=== PATIENT | female | born 1995 | race Caucasian/White ===

== ENCOUNTER 2016-08-23 12:59 | Observation (INO) ==
--- NOTE | 2016-08-23 14:58 | Discharge Summary ---
Date of Encounter: 08/23/16 Time of Encounter: 15:01 - Discharge Diagnosis (1) 36 weeks gestation of Priority: Primary Status: Acute Comments: Pt not feeling contractions, no cervical change, stable to discharge to home. Keep scheduled appointment with care provider. (2) Polyhydramnios affecting in third trimester Priority: Secondary Status: Acute (3) and not yet delivered in third trimester Priority: Primary Status: Acute - Discharge Medications Home Medications: Dha 1 tab PO DAILY 05/05/15 [History] Allergies/Adverse Reactions: Allergies No Known Allergies Allergy (Verified 05/05/15 23:41) Date of admission: 08/23/16 12:59 Primary care physician: PCP NO Discharging clinician: Naya Sloan Anticipated date of discharge: 08/23/16 - Patient Status Disposition: Home, Self-Care Condition: Good Functional capacity at discharge: independent ambulation - Discharge Instructions Follow Up With: NO,PCP [Primary Care Provider] - Neyda Kent DO [Partnered Physician] - - Diet and Activity Activity: resume usual activities as tolerated Diet: regular diet 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 Reason for admission: other Time Attestation: Total time spent providing and/or coordinating discharge services: Time Spent: Less than 30 minutes Exam - Constitutional General appearance IM: A&O X 3 - Respiratory Respiratory exam: Present: CTAB - Cardiovascular Cardiovascular exam IM: Present: RRR - GI/Abdominal GI/Abdominal exam IM: soft - Extremities Exam Extremities exam IM: Present: normal inspection - Neurological Exam Neurological exam: normal gait, oriented X3 - Other Additional findings: VE 3/50/-3 EFM tracing shows Cat 1 tracing, 120/+accels/decels reactive NST - VTE Reasons for not Prescribing Prophylaxis: Medical contraindication
== END 2016-08-23 15:20 | disposition home or self-care (01) ==
LOC: 1NENULAB
PROVIDERS: ADMIT Obstetrics & Gynecology; ATTEND Obstetrics & Gynecology

== ENCOUNTER 2016-09-08 10:00 | Inpatient (IN) ==
[2016-09-08] MEDS ORDERED: Ringers Solution, Lactated 1,000 ML ONE (11:12)
[2016-09-08] MEDS ORDERED: Famotidine 20 MG/2 ML VIAL IVP PRN (11:17)
[2016-09-08] MEDS ORDERED: Naloxone 0.4 MG/ML INJ IVP PRN (11:17)
[2016-09-08] MEDS ORDERED: Metoclopramide 10 MG/2 ML VIAL IVP PRN (11:17)
--- NOTE | 2016-09-08 11:26 | OB/GYN History & Physical ---
Date of Encounter: 09/08/16 Time of Encounter: 11:20 Assessment and Plan (1) 39 weeks gestation of Current visit: Yes Status: Chronic . 39w 0d. Face anterior lie. Macrosomia and polyhydramnios. - Elective labor induction today. Plan on cytotec induction. Will re-evaluate to assess need for laura induction and/or pitocin. Hx shoulder dystocia on previous delivery. (2) Elective induction of labor planned Current visit: Yes Status: Acute as above. (3) Polyhydramnios affecting in third trimester Current visit: Yes Status: Acute as above. (4) Macrosomia affecting management of mother in third trimester, single gestation Current visit: Yes Status: Acute as above. History of Present Illness Chief complaint: induction HPI: Mrs. Quigley is a 21 year old female presents from home for induction. Indication for induction: macrosomia. (hx vaginal deliveries). 39w0d. Patient notes movement. Her contractions are described as mild, lasting appx 1 minute, occurring every 15-20 min. She does not have any discomfort, questions, or complaints at this time. complications: polyhydramnios macrosomia Face anterior lie Previous twyla complications: shoulder dystocia OB: Dr. Kent Blood type: A+, ab (-) GBS: (-) HbSAG: (-) Rubella: Immune Varicella: immune T. Pallidum: (-) HIV: (-) N. 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 Escobedo Baby boy anticipated name: Ben. Past Med Surg Social Fam HX - Past Medical History Medical history: no medical history Psychiatric history: no psych history - Past Surgical History Surgical History: no surgical history - Social History Smoking Status: Never smoker Smokeless Tobacco Status: No Alcohol use: none Drug use: none - Family History Mother Adopted: No Family Member Ethnicity: Non- Living Status: Still Living Hx Family Cardiac Disorders: No Hx Family Respiratory Disorders: No Hx Family Cancer: No Hx Family GI Disorders: No Hx Family Endocrine Disorder: Yes (thyroid disease) Hx Family Neuromuscular Disorders: No Hx Family Neurologic Disorders: No Hx Family HEENT Disorders: No Hx Family Autoimmune Disorders: No Obstetrical History - Pregnancies : 3 Para: 2 Term: 2 : 0 Ab's: 0 Livin Medications and Allergies Dha 1 tab PO DAILY 05/05/15 [History] Allergies No Known Allergies Allergy (Verified 09/08/16 11:20) Review of System OB All systems PM: reviewed and no additional remarkable complaints except as stated - Constitutional Constitutional ROS IM: no anorexia, no fatigue, no fever(s) - Cardiovascular Cardiovascular: no chest pain, no chest pain with activity - Respiratory Respiratory: no cough, no dyspnea, no dyspnea on exertion Exam - Constitutional Constitutional: well developed, well nourished, no acute distress, average body habitus - Neck Neck exam: full ROM - Lungs Respiratory exam: CTAB - Cardiovascular Cardiovascular exam: RRR, +S1, +S2 - Abdomen Abdomen: Present: bowel sounds normal, gravid - Extremities Extremities exam: normal capillary refill, normal inspection, pedal edema (1) Results All other labs normal. - VTE Reasons for not Prescribing Prophylaxis: Treatment not Indicated - Low risk for VTE
[2016-09-08 11:57] LABS: Basophils % 0.3 %; Eosinophils % 0.4 %; Hemoglobin 10.1 g/dL (11.5-15.4); Immature Granulocytes % 1.2 % (0-4); Lymphocytes % 20.1 %; Mean Corpuscular HGB Conc 30.6 g/dL (31.6-35.5); Mean Corpuscular Volume 78.6 fL (83.0-100.0); Mean Platelet Volume 10.7 fL (9.4-12.4); Monocytes # 0.8 K/mcL (0.0-1.3); Monocytes % 7.6 %; Platelet Count 239 K/mcL (140-400); Red Cell Distribution Width 14.3 % (11.5-14.5); Segmented Neutrophils % 70.4 %
[2016-09-08] MEDS ORDERED: Oxytocin 20 units/ LR 1000 mL 20 UNIT/1,000 ML BAG IVC SCH (12:06)
[2016-09-08] MEDS ORDERED: *HR* Nalbuphine 20 MG/ML AMPUL IVP PRN (12:08)
[2016-09-08] MEDS: Ringers Solution, Lactated 1,000 ML IVC SCH ×2 (12:46→19:04)
--- NOTE | 2016-09-08 15:05 | Anesthesia Evaluation PreOp ---
Date of Encounter: 09/08/16 Time of Encounter: 15:03 - Past History Planned Operation: justin Cardiac History: Denies any Significant Hx Pulmonary History: Denies Any Significant HX INTERPRETER AND TRANSLATOR History: Denies Any Significant HX Other Medical History: Denies Any Significant HX Anesthesia History: No Prior Anesthetic Complications, Past Anesthesia (2 epidurals) : Yes Test: Positive Alcohol Use: none Drug use: none Medications and Allergies Dha 1 tab PO DAILY 05/05/15 [History] Allergies No Known Allergies Allergy (Verified 09/08/16 11:20) - Meds/Allergy Pre-op Review Medications Reviewed: Yes Allergies Reviewed: Yes Beta Blockers on Current Med List: No Anesthesia Results - Labs 09/08/16 11:45 Anesthesia Exam 111/6690 fht 115 Height: 5'3" Weight: 90.5 kg NPO (# of Hours): 3 Pain Scale: 2 Pain Scale Used: Numeric (1 - 10) - HEENT Pupil (Motor): Pupils equal Mallampati: II Teeth: Normal Oral Opening: Greater than 3 - INTERPRETER AND TRANSLATOR LOC: Oriented INTERPRETER AND TRANSLATOR Motor: Normal RUE, Normal LUE, Normal RLE, Normal LLE, Normal Face INTERPRETER AND TRANSLATOR Sensory: Normal: RUE, LUE, RLE, LLE, Face - Cardiac Rhythm: Regular Murmur: None - Pulmonary Breath Sounds: bilateral Clear Respiratory Effort: Symmetrical Anesthesia Assess/Plan ASA Score: 2 Modified [place] Scale for Level of Consciousness: Cooperative, oriented, and tranquil Anesthetic Plan: Regional Autologous Blood: No Monitoring Plan: Standard Monitors Recovery Plan: Other (risks discussed, questions anwered, consented)
[2016-09-08] MEDS ORDERED: *HR* FentaNYL (PF) 100 MCG/2 ML VIAL EP ONE (15:08)
[2016-09-08] MEDS ORDERED: *HR* Ropivacaine/PF 0.2% 10 ML AMPUL EP ONE (15:08)
[2016-09-08] MEDS ORDERED: Epidural Premix (fent/bupiv) 110 ML EP SCH (15:15)
[2016-09-08] MEDS ORDERED: Acetaminophen 325 MG TABLET PO PRN (15:58)
[2016-09-08] MEDS ORDERED: *HR* FentaNYL (PF) 100 MCG/2 ML VIAL ONE (19:08)
[2016-09-08] MEDS ORDERED: *HR* Morphine Sulfate/PF 5 MG/10 ML AMPUL ONE (19:08)
[2016-09-08] MEDS ORDERED: *HR* Phenylephrine 10 MG/ML VIAL ONE (19:08)
[2016-09-08] MEDS ORDERED: Ondansetron 4 MG/2 ML VIAL ONE (19:08)
[2016-09-08] MEDS ORDERED: *HR* Oxytocin 10 UNIT/ML VIAL IM ONE (19:09)
[2016-09-08] MEDS ORDERED: EPHEDrine 50 MG/ML VIAL ONE (19:57)
[2016-09-08] MEDS ORDERED: *HR* HYDROmorphone (PF) 1 MG/ML SYRINGE IVP PRN ×2 (20:14→21:31)
[2016-09-08] MEDS ORDERED: Ondansetron 4 MG/2 ML VIAL IVP PRN (20:14)
--- NOTE | 2016-09-08 20:14 | Anesthesia Procedures ---
Date of Encounter: 09/08/16 Time of Encounter: 20:12 Procedures: Anesthesia - Epidural/Spinal Patient ID/Chart reviewed: Yes Patient examined: Yes OB Eval: Gestational age: 38 OB Eval: : 3 OB Eval: Hx Para: 2 OB Eval: Dilated at (cm): 3 OB Eval: Contractions: Non-stressed pattern Consent Obtained: Yes Supplemental Oxygen: Nasal Cannula Supplemental Oxygen Rate (L/min): 3 Site Prep: Aseptic Technique, Sterile prep and drape, Povidone-Iodine 1% Patient position: upright Local Anesthetic: Lidocaine 1% Amount of Local Anesthetic used: 3 Interspace Used: L2-L3 Loss of Resistance ([place]): No Blood: No CSF: Yes Paresthesia: No Spinal Needle Gauge: 24 (g) Spinal Dose: marcaine 12 mg, duramorph .25mg fentanyl 7 mc Procedure: aseptiuc, tolerated well, effective
--- NOTE | 2016-09-08 20:46 | OB/GYN Procedure Note ---
Section - Date of procedure: 09/08/16 Preop diagnosis: other ( macrosomia, history of shoulder dystocia) Post-op diagnosis: same Procedure: primary low transverse Surgeon: Tameka Null Estimated blood loss (cc): 700 Anesthesiologist: Stevie Ewing Income Tax Administrator: Levon Mauro Anesthesia Type: Spinal section complications: none Disposition: L&D Recovery Room Specimens: Placenta - Infant (s) A Delivery Date: 09/08/16 Infant Delivery Time: 20:02 Presentation: vertex Position: unknown Route of delivery: other Gender: Male Viability: Viable Pounds: 9 Ounces: 3 Gram Weight: 4165 kg at 1 minute: 8 at 5 minutes: 9 Placenta: complete extraction Cord: nuchal cord, 3 umbilical vessels - Narrative Narrative: Patient was a originally admitted for an elective induction of labor due to macrosomia and history of polyhydramnios. Her history is significant for a shoulder dystocia lasting 90 seconds with her first infant that weighed 9 pounds. Her last ultrasound was approximately 2 weeks ago with an estimated weight of approximately 8 pounds and 4 ounces. The induction was started with Pitocin and she remained dilated 3 cm with a very high station. When I went in to obtain her history, she mentioned the above facts of a shoulder dystocia that was quite scary experience. Both her and her mother stated that if there was ever chance that that would happen again that she would prefer section. Given the fact that her ultrasound was 2 weeks ago, the Pitocin was stopped and we requested a formal ultrasound. The ultrasound gave an estimated weight of 9 lbs. 14 oz.+ or -1 lb. 8 oz. The RIGOBERTO was 16.9 cm of concern was a BPD of at the 87th percentile, head circumference at the 29th percentile, and an abdominal circumference greater than the 98th percentile. Measurements noted the head circumference of 33 cm and an abdominal circumference of 39 cm. Given these findings and her history of shoulder dystocia discuss the options but ultimately decided to proceed with a primary section. Procedure: Patient was taken to the operating room and placed in supine position after administration of spinal anesthetic. Skin was then prepped and draped in usual sterile fashion and timeout procedure was performed. A Pfannenstiel incision was performed and carried down to the fascial layer until the abdominal cavity was entered. A bladder flap was then gently created with sharp dissection. A low transverse uterine incision was then performed and extended bilaterally with bandage scissors. Viable male infant was then delivered from a vertex presentation with scores of 8 and 9 at one and 5 minutes respectively, and the infant weighed 9 lbs. 3 oz. Clamped and cut and the infant was handed to the nursery team. The placenta was then manually removed and the uterine cavity was wiped clean with wet lap sponge. Uterine incision was closed in a layered fashion with 0 Vicryl suture in a running locking fashion. Good hemostasis was achieved. Next the paracolic gutters were then gently wiped with a wet lap sponge. Once again good hemostasis was noted in the pelvis. The fascial layer was then closed with 0 PDS stratafix suture in a running nonlocking fashion. Subcutaneous layer was irrigated with sterile water and good hemostasis was present. The subcutaneous layer was then closed with 4-0 Vicryl suture in a running nonlocking fashion continuing to close the skin edges in a running subcuticular fashion. Patient followed procedure well, all sponge needle and instrument counts reported as correct. Estimated blood loss was 700 mL. The urine in the Garcia catheter was clear and yellow. She was taken the recovery room in stable condition.
--- NOTE | 2016-09-08 22:31 | Anesthesia Evaluation Post Op ---
Date of Encounter: 09/08/16 Time of Encounter: 22:29 - Vital Signs Vital Signs: 100/70 88 16 974 - Lungs Lungs: Clear Ascult./Percussion - Airway Airway: Non-obstructed - Cardiovascular Regular Rate - Mental Status Mental Status: Alert & Oriented, Answers Appropriately - Pain Pain Scale: 3 Pain Scale used: Numeric (1 - 10) (dilaudid 1mg) - Nausea Vomiting Nausea Vomiting: Present (zofran for nausea) - Hydration Hydration: NPO Notes: 09/08/16 22:30 fully awake, some mild nausea, beginning to have incisional pain, dilaudid being given, stable otherwise - Discharge PostOp Status: Transfer Patient to floor
[2016-09-09] MEDS ORDERED: Ketorolac 30 MG/ML VIAL IVP PRN ×2 (00:14→10:37)
[2016-09-09] MEDS ORDERED: Ondansetron 4 MG/2 ML VIAL IVP PRN ×2 (00:34→01:18)
[2016-09-09] MEDS ORDERED: Metoclopramide 10 MG/2 ML VIAL IVP PRN (00:34)
[2016-09-09] MEDS ORDERED: Sennosides 8.6 MG TABLET PO PRN (00:34)
[2016-09-09] MEDS ORDERED: Oxytocin 20 units/ LR 1000 mL 20 UNIT/1,000 ML BAG IV SCH (00:34)
[2016-09-09] MEDS ORDERED: Ketorolac 30 MG/ML VIAL IM PRN (00:35)
[2016-09-09] MEDS ORDERED: *HR* Promethazine 25 MG/ML VIAL IVP PRN (04:12)
[2016-09-09 04:24] LABS: Hematocrit 24.7 % (35.3-44.9); Immature Granulocytes % 0.7 % (0-4); Lymphocytes % 10.2 %; Mean Corpuscular Hemoglobin 25.2 pg (28.0-33.3); Mean Corpuscular Volume 78.9 fL (83.0-100.0); Mean Platelet Volume 10.6 fL (9.4-12.4); Platelet Count 217 K/mcL (140-400); Red Blood Count 3.13 M/mcL (3.82-4.97); Red Cell Distribution Width 14.6 % (11.5-14.5); Segmented Neutrophils % 82.1 %
[2016-09-09 04:25] LABS: Basophils % 0.2 %; Lymphocytes # 1.3 K/mcL (0.6-4.6); Monocytes # 0.9 K/mcL (0.0-1.3); Monocytes % 6.8 %; Neutrophils # 10.8 K/mcL (1.6-8.9)
[2016-09-09 04:26] LABS: Hemoglobin 7.9 g/dL (11.5-15.4)
[2016-09-09] MEDS: Prenatal Vit/FA 1 EACH TABLET PO SCH (08:51)
--- NOTE | 2016-09-09 10:18 | OB/GYN Progress Note ---
Date of Encounter: 09/09/16 Time of Encounter: 10:16 - Assessment and Plan (1) S/P section Current Visit: Yes Status: Acute Mrs. Quigley is day 1 s/p non-scheduled , delivery of full term male. Indication: Preferred by patient given intrauterine ultrasound measurements vs history and concern of shoulder dystocia. Patient is now . Pain control via NSAID. Activity as tolerated. Diet as tolerated. Anticipate discharge tomorrow. Subjective - Subjective Principal diagnosis: s/p cesarian section Interval history: Ms. Quigley is laying comfortably in bed holding her . She feels much better without opiate pain control preferring ibuprophen or toradol instead. She is pain free at rest however, when standing upright, has intense lower abdominal pain improved with NSAID. Her appetitie is good. She has voided. She has not yet had a bowel movement. Her vaginal discharge is reported as scant bleeding. Patient reports: appetite normal, voiding normally, pain well controlled, ambulating normally [place]: doing well Objective - Vital Signs Latest vital signs: Vital Signs Temp Pulse Resp BP Pulse Ox 09/09/16 08:14 98.2 F 96 18 107/63 98 09/09/16 06:00 98.6 F 91 18 108/65 97 09/09/16 05:22 16 09/09/16 02:05 97.7 F 92 16 101/64 98 09/09/16 02:04 16 09/09/16 01:25 97.7 F 98 16 98/60 98 09/09/16 01:03 16 09/09/16 00:00 97.6 F 102 16 102/62 99 09/08/16 23:30 97.6 F 109 16 97/54 100 09/08/16 23:00 97.9 F 104 16 107/68 99 Intake and Output 09/08/16 09/09/16 09/09/16 23:59 07:59 15:59 Intake Total 1000 / 1000 Output Total 250 / 250 Balance 750 / 750 Intake: IV Fluids 1000 / 1000 Lactated Ringers 1,000 ML 1000 / 1000 @ 125 mls/hr IVC .Q8H EDILSON Rx#:[id number] Oral 0 / 0 Output: Catheter 250 / 250 Other: Weight 84.8 kg 85.1 kg Patient Weight 09/09/16 23:59 Weight 85.1 kg - Exam Lungs: bilateral: normal Chest: Normal S1, Normal S2 Extremities: Present: normal Abdomen: Present: normal appearance, soft Incision: Present: normal, dry, intact, warm, dressed (dressing removed for exam.) Uterus: Present: firm Fundal Height: 0 (at level of umbilicus) - Labs Labs: Laboratory Results - last 24 hr 09/08/16 09/09/16 11:45 03:49 WBC 10.0 13.1 H RBC 4.20 3.13 L Hgb 10.1 L 7.9 L D Hct 33.0 L 24.7 L MCV 78.6 L 78.9 L MCH 24.0 L 25.2 L MCHC 30.6 L 32.0 RDW 14.3 14.6 H Plt Count 239 217 MPV 10.7 10.6 Immature Gran % 1.2 0.7 Seg Neutrophils % 70.4 82.1 Lymphocytes % 20.1 10.2 Monocytes % 7.6 6.8 Eosinophils % 0.4 0.0 Basophils % 0.3 0.2 Neutrophils # 7.0 10.8 H Lymphocytes # 2.0 1.3 Monocytes # 0.8 0.9 Eosinophils # 0.0 0.0 Basophils # 0.0 0.0
[2016-09-09] MEDS: *HR* OxyCODONE/APAP 5/325 TABLET PO PRN ×2 (15:22→22:53)
[2016-09-09] MEDS: Ibuprofen 600 MG TABLET PO PRN (20:34)
[2016-09-09] MEDS: Simethicone 80 MG TAB.CHEW PO PRN (20:46)
[2016-09-10] MEDS: Ibuprofen 600 MG TABLET PO PRN ×2 (02:22→09:51)
[2016-09-10 06:54] LABS: Hematocrit 21.9 % (35.3-44.9); Hemoglobin 6.7 g/dL (11.5-15.4); Mean Corpuscular HGB Conc 30.6 g/dL (31.6-35.5); Mean Corpuscular Hemoglobin 24.5 pg (28.0-33.3); Mean Corpuscular Volume 79.9 fL (83.0-100.0); Mean Platelet Volume 10.6 fL (9.4-12.4); Platelet Count 229 K/mcL (140-400); Red Blood Count 2.74 M/mcL (3.82-4.97); Red Cell Distribution Width 14.8 % (11.5-14.5)
[2016-09-10] MEDS: *HR* OxyCODONE/APAP 5/325 TABLET PO PRN (07:42)
[2016-09-10] MEDS: Prenatal Vit/FA 1 EACH TABLET PO SCH (07:42)
[2016-09-10] MEDS: Simethicone 80 MG TAB.CHEW PO PRN (07:43)
[2016-09-10 08:44] VITALS: BP 102/69
--- NOTE | 2016-09-10 10:36 | Discharge Summary ---
Date of Encounter: 09/10/16 Time of Encounter: 10:33 - Discharge Diagnosis (1) Elective induction of labor planned Priority: Primary Status: Resolved (2) Macrosomia affecting management of mother in third trimester, single gestation Priority: Secondary Status: Resolved (3) S/P section Priority: Secondary Status: Resolved (4) 39 weeks gestation of Priority: Secondary Status: Resolved (5) Polyhydramnios affecting in third trimester Priority: Secondary Status: Resolved (6) Anemia affecting in third trimester Priority: Secondary Status: Acute - Discharge Medications Prescriptions: Ibuprofen [Motrin] 600 mg PO Q6HR PRN #30 tablet PRN Reason: Cramping OxyCODONE/APAP 5/325 [Percocet 5/325 MG] 1 each PO Q6HR PRN #30 tablet PRN Reason: Moderate pain 4-6 Docusate [Colace] 100 mg PO BID #60 capsule Ferrous Sulfate 325 mg PO TIDWM #90 tablet Home Medications: Dha 1 tab PO DAILY 05/05/15 [History] Docusate [Colace] 100 mg PO BID #60 capsule 09/10/16 [Rx] Ferrous Sulfate 325 mg PO TIDWM #90 tablet 09/10/16 [Rx] Ibuprofen [Motrin] 600 mg PO Q6HR PRN #30 tablet 09/10/16 [Rx] OxyCODONE/APAP 5/325 [Percocet 5/325 MG] 1 each PO Q6HR PRN #30 tablet 09/10/16 [Rx] Allergies/Adverse Reactions: Allergies No Known Allergies Allergy (Verified 09/08/16 11:20) Data Procedures and tests throughout hospitalization: Laboratory Tests 09/08/16 09/09/16 09/10/16 11:45 03:49 06:23 WBC 10.0 13.1 H 10.3 RBC 4.20 3.13 L 2.74 L Hgb 10.1 L 7.9 L D 6.7 L Hct 33.0 L 24.7 L 21.9 L MCV 78.6 L 78.9 L 79.9 L MCH 24.0 L 25.2 L 24.5 L MCHC 30.6 L 32.0 30.6 L RDW 14.3 14.6 H 14.8 H Plt Count 239 217 229 MPV 10.7 10.6 10.6 Immature Gran % 1.2 0.7 Seg Neutrophils % 70.4 82.1 Lymphocytes % 20.1 10.2 Monocytes % 7.6 6.8 Eosinophils % 0.4 0.0 Basophils % 0.3 0.2 Neutrophils # 7.0 10.8 H Lymphocytes # 2.0 1.3 Monocytes # 0.8 0.9 Eosinophils # 0.0 0.0 Basophils # 0.0 0.0 Labs on day of discharge: Labs from last 24 hours 09/10/16 06:23 WBC 10.3 RBC 2.74 L Hgb 6.7 L Hct 21.9 L MCV 79.9 L MCH 24.5 L MCHC 30.6 L RDW 14.8 H Plt Count 229 MPV 10.6 - Impressions ITS Impressions Obstetrics Ultrasound 09/08/16 16:39 IMPRESSION: 1. Single live intrauterine with gestational age of 39 weeks 3 days by current sonographic biometry. The estimated due date is 09/12/2016. 2. Estimated weight of 4471 g corresponding to greater than 90 percentile based upon LMP. 3. Normal amniotic fluid with RIGOBERTO of 17.0. D/ / Jonathan Ramirez MD / Jonathan Ramirez MD Interpreting Provider: Jonathan Ramirez MD Date of admission: 09/08/16 10:03 Primary care physician: PCP NO Discharging clinician: Tameka Null Anticipated date of discharge: 09/10/16 - Patient Status Disposition: Home, Self-Care Condition: Good Functional capacity at discharge: independent ambulation Overall status at discharge: patient is progressing back to baseline - Discharge Instructions Follow Up With: Tameka Null DO [Partnered Physician] - (September 25, 2016 @ 3:00 pm) - Diet and Activity Activity: increase activity as tolerated Diet: advance to your usual diet Hospital Course Reason for admission: induction of labor Delivery: section Episiotomy: none Laceration: none Other procedures: none complications: none Discharge diagnosis: IUP at term delivered baby: male Time Attestation: Total time spent providing and/or coordinating discharge services: Time Spent: Less than 30 minutes - VTE Reasons for not Prescribing Prophylaxis: Treatment not Indicated - Low risk for VTE Documentation of Mechanical Device: Intermittent pneumatic compression device Exam - Constitutional Vitals: Temp Pulse Resp BP Pulse Ox 97.8 F 95 16 102/69 98 09/10/16 08:00 09/10/16 08:00 09/10/16 08:00 09/10/16 08:00 09/10/16 08:00 General appearance IM: A&O X 3, no acute distress - Respiratory Respiratory exam: Present: CTAB. Absent: respiratory distress - Cardiovascular Cardiovascular exam IM: Absent: irregular rhythm - GI/Abdominal GI/Abdominal exam IM: normal bowel sounds Incision: normal, dry, intact - Rectal Rectal exam: deferred - Uterine Tone: Firm Uterus Position: 2 Fingers Below Umbilicus - Extremities Exam Extremities exam IM: Absent: calf tenderness
== END 2016-09-10 12:52 | disposition home or self-care (01) | DRG 540 ==
LOC: 1NENULAB 10:03 → 1NENUOBS 23:14